=== PATIENT | female | born 1970 ===

== ENCOUNTER 2018-11-21 07:56 | Outpatient (CLI) | payer OTHER | END 2018-11-21 08:02 | disposition home or self-care (01) | LOC: SONOGRAMA 07:56 | DX: E04.2 Nontoxic multinodular goiter (principal) ==

== ENCOUNTER 2019-06-22 07:13 | Outpatient (CLI) | payer OTHER | END 2019-06-22 10:04 | disposition home or self-care (01) | LOC: SONOGRAMA 07:13 | DX: E04.1 Nontoxic single thyroid nodule (principal) ==

== ENCOUNTER 2023-08-30 07:19 | Outpatient (CLI) | payer OTHER | END 2023-08-30 07:28 | disposition home or self-care (01) | LOC: SONOGRAMA 07:19 | PROVIDERS: ATTEND Internal Medicine | DX: M19.90 Unspecified osteoarthritis, unspecified site (principal); E03.9 Hypothyroidism, unspecified ==